=== PATIENT | male | born 1990 | race African-American/Black ===

== ENCOUNTER 2020-09-04 13:52 | Emergency (ER) | payer OTHER ==
[~2020-09-04] VITALS: Ht 170.1 cm
[~2020-09-04 13:52] MED LIST: ALBUTEROL0.09 MG/A2 IH; ANTIVERT/2525 MG PO; ATARAX,VISTARIL50 MG PO; BENTYL10 MG PO; CIPROFLOXACIN500 MG PO; CLONIDINE0.2 MG PO; GEODON20 MG PO; MOTRIN800 MG PO; NKHM; PEN-VEE K500 MG PO; PERCOCET 325 MG1 TA2 PO; TRAMADOL HCL50 MG PO; TRAZODONE50 MG PO; TRIMOX500 MG PO; ZOFRAN ODT4 MG SL
[2020-09-04 14:57] LABS: BILIRUBIN Negative (Negative); BLOOD Negative (Negative); CLARITY Clear (Clear); COLOR Yellow (Yellow); GLUCOSE Negative (Negative); KETONE 1+ (Negative); LEUKO ESTERASE Negative (Negative); NITRITE Negative (Negative); SPECIFIC GRAVITY 1.025 (1.001-1.030)
[2020-09-04 15:15] LABS: MUCOUS TRACE; WBC 0-2 wbc/hpf (0-5)
[2020-09-04 15:16] LABS: URINE AMPHETAMINES < 1000 (1000ng/ml); URINE BARBITURATES < 200 (200ng/ml); URINE BENZODIAZEPINES < 200 (200ng/ml); URINE CANNABINOIDS (THC) > 50 (50ng/ml); URINE COCAINE < 300 (300ng/ml); URINE METHADONE < 300 (300ng/ml); URINE OPIATES < 300 (300ng/ml)
[2020-09-04 15:16] LABS: BASO % 0.2 % (0.0-1.0); EOS % 0.2 % (1.0-4.0); LYMPH # 0.9 10*3/uL (1.3-4.4); LYMPH % 13.3 % (27.0-41.0); MEAN CELL VOLUME 87.5 fl (80.0-94.0); MEAN CORPUSCULAR HGB 29.1 pg (27.0-31.0); MEAN CORPUSCULAR HGB CONC 33.3 g/dl (33.0-37.0); MEAN PLATELET VOLUME 9.7 fl (9.6-12.3); MONO # 0.3 10*3/uL (0.1-1.0); MONO % 3.8 % (3.0-9.0); NEUT # 5.5 10*3/uL (2.3-7.9); NEUT % 82.2 % (47.0-73.0); PLATELET COUNT AUTOMATED 258 10*3/uL (130-400); RED CELL DISTRI WIDTH 13.2 % (0-14.5); WHITE BLOOD COUNT 6.6 10*3/uL (4.8-10.8)
[2020-09-04 15:24] LABS: URINE PHENCYCLIDINE < 25 (25ng/ml)
[2020-09-04 15:33] LABS: ALBUMIN 4.3 gm/dl (3.1-4.5); ALKALINE PHOSPHATASE 98 U/L (45-117); BUN 13 mg/dl (7-24); CHLORIDE 104 mmol/L (98-107); CREATININE 1.03 mg/dL (0.70-1.30); SGOT/AST 17 IU/L (3-35); SGPT/ALT 50 U/L (12-78); SODIUM 131 mmol/L (136-145); TOTAL PROTEIN 8.4 gm/dL (6.4-8.2)
[2020-09-04] MEDS ORDERED: NAPROXEN250 MG PO (15:35)
[2020-09-04] MEDS ORDERED: MIRALAX POWDER17 G1 PO (15:35)
== END 2020-09-04 15:38 | disposition home or self-care (01) ==
LOC: ED 13:52
PROVIDERS: Emergency Medicine
DX: G89.29 Other chronic pain (principal); M54.5 Low back pain; K59.00 Constipation, unspecified; F17.200 Nicotine dependence, unspecified, uncomplicated; Z87.442 Personal history of urinary calculi; Z79.899 Other long term (current) drug therapy

== ENCOUNTER 2022-07-05 21:22 | Emergency (ER) | payer MEDICAID ==
[~2022-07-05] VITALS: Ht 170.1 cm; Wt 113.4 kg
[~2022-07-05 21:22] MED LIST changes: +MIRALAX POWDER17 G1 PO; +NAPROXEN250 MG PO
[2022-07-05 22:29] LABS: BASO % 0.5 % (0.0-1.0); EOS # 0.1 10*3/uL (0.0-0.4); EOS % 1.8 % (1.0-4.0); HEMATOCRIT 45.1 % (42.0-52.0); LYMPH # 1.9 10*3/uL (1.3-4.4); LYMPH % 33.9 % (27.0-41.0); MEAN CELL VOLUME 86.1 fl (80.0-94.0); MEAN CORPUSCULAR HGB CONC 33.7 g/dl (33.0-37.0); MEAN PLATELET VOLUME 10.2 fl (9.6-12.3); MONO # 0.3 10*3/uL (0.1-1.0); MONO % 5.1 % (3.0-9.0); NEUT # 3.2 10*3/uL (2.3-7.9); NEUT % 58.5 % (47.0-73.0); PLATELET COUNT AUTOMATED 257 10*3/uL (130-400); RED BLOOD COUNT 5.24 10*6/uL (4.50-5.90); RED CELL DISTRI WIDTH 12.9 % (0-14.5); WHITE BLOOD COUNT 5.5 10*3/uL (4.8-10.8)
[2022-07-05 23:03] LABS: ALKALINE PHOSPHATASE 79 U/L (46-116); BUN 5 mg/dl (9-23); CHLORIDE 106 mmol/L (98-107); LIPASE 29 U/L (12-53); POTASSIUM 3.2 mmol/L (3.4-5.1); SGPT/ALT 15 U/L (10-49); THYROID STIM HORMONE (HS) 0.192 uIU/ml (0.550-4.780); TOTAL PROTEIN 6.9 gm/dL (6.0-8.0)
[2022-07-05] MEDS ORDERED: VIBRA-TAB100 MG PO (23:22)
== END 2022-07-05 23:36 | disposition home or self-care (01) ==
LOC: ED 21:22
PROVIDERS: Student in an Organized Health Care Education/Training Program
DX: J06.9 Acute upper respiratory infection, unspecified (principal); M25.511 Pain in right shoulder; M54.9 Dorsalgia, unspecified

== ENCOUNTER 2023-09-21 09:07 | Emergency (ER) | payer MEDICAID ==
[~2023-09-21] VITALS: Ht 165.1 cm; Wt 107.0 kg
[~2023-09-21 09:07] MED LIST changes: +VIBRA-TAB100 MG PO
[2023-09-21] MEDS ORDERED: MELOXICAM15 MG PO (09:16)
[2023-09-21] MEDS ORDERED: OMEPRAZOLE40 MG PO (09:16)
[2023-09-21] MEDS ORDERED: TRAZODONE100 MG PO (09:16)
[2023-09-21] MEDS ORDERED: MECLIZINE HCL25 M2 PO (09:17)
[2023-09-21] MEDS ORDERED: MELATONIN5 M7 PO (09:17)
[2023-09-21] MEDS ORDERED: CITALOPRAM40 MG PO (09:17)
[2023-09-21] MEDS ORDERED: ALPRAZOLAM0.5 M3 PO (09:18)
[2023-09-21 09:43] LABS: BASO % 0.7 % (0.0-1.0); EOS # 0.5 10*3/uL (0.0-0.4); EOS % 8.1 % (1.0-4.0); HEMATOCRIT 43.3 % (42.0-52.0); LYMPH # 2.4 10*3/uL (1.3-4.4); LYMPH % 39.9 % (27.0-41.0); MEAN CELL VOLUME 88.7 fl (80.0-94.0); MEAN CORPUSCULAR HGB 28.7 pg (27.0-31.0); MEAN CORPUSCULAR HGB CONC 32.3 g/dl (33.0-37.0); MEAN PLATELET VOLUME 9.7 fl (9.6-12.3); MONO # 0.4 10*3/uL (0.1-1.0); MONO % 5.9 % (3.0-9.0); NEUT # 2.7 10*3/uL (2.3-7.9); NEUT % 45.2 % (47.0-73.0); PLATELET COUNT AUTOMATED 194 10*3/uL (130-400); RED BLOOD COUNT 4.88 10*6/uL (4.50-5.90); RED CELL DISTRI WIDTH 12.8 % (0-14.5); WHITE BLOOD COUNT 5.9 10*3/uL (4.8-10.8)
[2023-09-21 09:55] LABS: ACT PARTIAL THROMBO TIME 26.4 SECONDS (20.0-32.1)
[2023-09-21 10:10] LABS: ALKALINE PHOSPHATASE 78 U/L (46-116); BUN 19 mg/dl (9-23); CHLORIDE 107 mmol/L (98-107); CPK 292 U/L (34-171); POTASSIUM 3.9 mmol/L (3.4-5.1); SGPT/ALT 26 U/L (5-49); TOTAL PROTEIN 6.8 gm/dL (6.0-8.0)
[2023-09-21 10:12] LABS: ETHYL ALCOHOL < 3.0 mg/dl (<3)
[2023-09-21] MEDS ORDERED: Lactated Ringer's Solution 1,000 ML IV SCH ×2 (11:20→17:45)
[2023-09-21 11:52] LABS: BILIRUBIN Negative (Negative); BLOOD Negative (Negative); CLARITY Clear (Clear); COLOR Yellow (Yellow); GLUCOSE Negative (Negative); KETONE Negative (Negative); LEUKO ESTERASE Negative (Negative); NITRITE Negative (Negative); PH 5.5 (4.5-8.0); SPECIFIC GRAVITY >= 1.030 (1.001-1.030); UROBILINOGEN 0.2 E.U./dl (0.0-1.0)
[2023-09-21 12:00] LABS: URINE AMPHETAMINES Negative (1000ng/ml); URINE BARBITURATES Negative (200ng/ml); URINE BENZODIAZEPINES Positive (200ng/ml); URINE CANNABINOIDS (THC) Positive (50ng/ml); URINE COCAINE Positive (300ng/ml); URINE METHADONE Negative (300ng/ml); URINE OPIATES Positive (300ng/ml); URINE PHENCYCLIDINE Negative (25ng/ml)
[2023-09-21 12:08] LABS: BACTERIA 2+; EPITHELIAL CELLS 0-2; MUCOUS TRACE; RBC 0-2 rbc/hpf (0-2); WBC 0-2 wbc/hpf (0-5)
[2023-09-21] MEDS ORDERED: Lactated Ringer's Solution 500 ML BAG IV ONE (17:45)
[2023-09-21] MEDS ORDERED: SODIUM CHLORIDE 0.9% 1,000 ML IV ONE (23:55)
[2023-09-22] MEDS ORDERED: ZESTORETIC 10-1 EACH PO (09:20)
== END 2023-09-22 09:47 | disposition home or self-care (01) ==
LOC: ED 09:07
PROVIDERS: Emergency Medicine
DX: T39.311A Poisoning by propionic acid derivatives, accidental (unintentional), initial encounter (principal); F90.9 Attention-deficit hyperactivity disorder, unspecified type; F41.9 Anxiety disorder, unspecified; I10 Essential (primary) hypertension; F19.90 Other psychoactive substance use, unspecified, uncomplicated; Z87.891 Personal history of nicotine dependence; Y92.039 Unspecified place in apartment as the place of occurrence of the external cause

== ENCOUNTER 2024-07-10 12:36 | Emergency (ER) | payer SELFPAY ==
[~2024-07-10] VITALS: Ht 170.1 cm; Wt 105.2 kg
[~2024-07-10 12:36] MED LIST changes: +ALPRAZOLAM0.5 M3 PO; +CITALOPRAM40 MG PO; +MECLIZINE HCL25 M2 PO; +MELATONIN5 M7 PO; +MELOXICAM15 MG PO; +OMEPRAZOLE40 MG PO; +TRAZODONE100 MG PO; +ZESTORETIC 10-1 EACH PO
[2024-07-10] MEDS ORDERED: Naloxone Hydrochloride 2 MG/2 ML SYR IV ONE ×2 (12:45→15:30)
[2024-07-10 13:42] LABS: BASO % 0.4 % (0.0-1.0); EOS # 0.2 10*3/uL (0.0-0.4); EOS % 4.9 % (1.0-4.0); HEMATOCRIT 44.3 % (42.0-52.0); MEAN CELL VOLUME 89.1 fl (80.0-94.0); MEAN CORPUSCULAR HGB CONC 32.5 g/dl (33.0-37.0); MEAN PLATELET VOLUME 9.8 fl (9.6-12.3); MONO # 0.4 10*3/uL (0.1-1.0); MONO % 8.2 % (3.0-9.0); NEUT # 2.8 10*3/uL (2.3-7.9); NEUT % 56.8 % (47.0-73.0); PLATELET COUNT AUTOMATED 174 10*3/uL (130-400); RED BLOOD COUNT 4.97 10*6/uL (4.50-5.90); RED CELL DISTRI WIDTH 13.3 % (0-14.5); WHITE BLOOD COUNT 4.9 10*3/uL (4.8-10.8)
[2024-07-10 14:04] LABS: ALKALINE PHOSPHATASE 80 U/L (46-116); BUN 11 mg/dl (9-23); CHLORIDE 107 mmol/L (98-107); POTASSIUM 3.8 mmol/L (3.4-5.1); SGPT/ALT 23 U/L (5-49); TOTAL PROTEIN 6.9 gm/dL (6.0-8.0)
[2024-07-10] MEDS ORDERED: NARCAN4 MG NAS (17:01)
== END 2024-07-10 19:48 | disposition home or self-care (01) ==
LOC: ED 12:36
PROVIDERS: Emergency Medicine
DX: T65.91XA Toxic effect of unspecified substance, accidental (unintentional), initial encounter (principal); I10 Essential (primary) hypertension; Z79.899 Other long term (current) drug therapy; Y92.89 Other specified places as the place of occurrence of the external cause